=== PATIENT | male | born 1960 | race Caucasian/White ===

== ENCOUNTER 2017-04-21 17:07 | Emergency (ER) | payer OTHER ==
[~2017-04-21] VITALS: Ht 165.1 cm; Wt 59.1 kg
[~2017-04-21 17:07] MED LIST: NOCURR
[2017-04-21] MEDS ORDERED: LISI-662 PO (17:33)
[2017-04-21] MEDS ORDERED: CARV3 PO (17:33)
[2017-04-21] MEDS ORDERED: ASPI-556 PO (17:33)
[2017-04-21] MEDS ORDERED: HYDR25TA PO (17:33)
[2017-04-21] MEDS ORDERED: VIT1TABL66 PO (17:33)
[2017-04-21] MEDS ORDERED: AMLO-511 PO (17:33)
[2017-04-21 19:58] VITALS: BP 141/82
== END 2017-04-21 20:42 | disposition home or self-care (01) ==
LOC: EMS 17:08
DX: F10.129 Alcohol abuse with intoxication, unspecified (principal); F17.210 Nicotine dependence, cigarettes, uncomplicated; Y90.9 Presence of alcohol in blood, level not specified
CPT/HCPCS: 99283